=== PATIENT | female | born 1990 | race Caucasian/White ===

== ENCOUNTER 2018-02-02 09:10 | Emergency (ER) | payer BC ==
[2018-02-02] MEDS ORDERED: Pantoprazole 40 MG Vial IVPUSH ONE (09:38)
[2018-02-02] MEDS ORDERED: Sodium Chloride 0.9% 10 ML Syringe FLUSH PRN (09:38)
[2018-02-02] MEDS ORDERED: Ondansetron 4 MG/2 ML SDV IVPUSH ONE (09:38)
[2018-02-02] MEDS ORDERED: Sodium Chloride 0.9% 2.5 ML Syringe FLUSH PRN (09:38)
[2018-02-02] MEDS ORDERED: Sodium Chloride 0.9% 1,000 ML IV ONE (09:38)
--- NOTE | 2018-02-02 09:42 | EDM.PDOC ---
ED HPI GENERAL MEDICAL PROBLEM - General Chief Complaint: Abdominal Pain Stated Complaint: CHEST PAIN Time Seen by Provider: 02/02/18 09:32 - History of Present Illness INITIAL COMMENTS - FREE TEXT/NARRATIVE: HISTORY AND PHYSICAL: History of present illness: The patient is a 27 y/o female who presents with complaints of nausea vomiting and diarrhea that started yesterday and now has epigastric pain radiating up the middle of her chest. Symptoms started yesterday with the nausea and vomiting than the diarrhea and then the abdominal pain. She's had no chest pain per se just the discomfort with the vomiting. She's had no cough fevers chills or urinary complaints. Patient has a history of a cholecystectomy but has no history of food intolerance or heartburn issues in the past. She tried over-the- counter Rolaids and it did not help. The patient states that her stools are watery and she's had at least 10 since this started yesterday but they are not black or bloody. Boyfriend at bedside said he had similar symptoms but not this bad on Monday. Patient says she has not had any exotic travel or new food intake that she can identify as the problem. She has been able to take sips of water but nothing more than that. She's not passing out or blacking out. Patient has a Mirena and she has not had any dysuria frequency or flank pain. She says all of her pain is in the epigastrium at its origin and then moves upwards. The patient states that she does not drink excessive amounts of caffeine or alcohol. Review of systems: As per history of present illness and below otherwise all systems reviewed and negative. Past medical history: As per history of present illness and as reviewed below otherwise noncontributory. Surgical history: As per history of present illness and as reviewed below otherwise noncontributory. Social history: No reported history of drug or alcohol abuse. Family history: As per history of present illness and as reviewed below otherwise noncontributory. Physical exam: General: Well-developed well-nourished minimally overweight female who is nontoxic and vital signs are noted by me HEENT: Atraumatic, normocephalic,negative for conjunctival pallor or scleral icterus, mucous membranes tacky, throat clear, neck supple, nontender, trachea midline. Lungs: Clear to auscultation, breath sounds equal bilaterally, chest nontender. Heart: S1S2, regular rate and rhythm no overt murmurs Abdomen: Soft, nondistended, minimal tenderness on deep palpation in the epigastrium but no right upper or left upper quadrant tenderness.. Negative for masses or hepatosplenomegaly. NABS Pelvis: Stable nontender. Genitourinary: Deferred. Rectal: Deferred. Extremities: Atraumatic, negative for cords or calf pain. Neurovascular unremarkable. Neuro: Awake, alert, oriented. Cranial nerves II through XII unremarkable. Cerebellum unremarkable. Motor and sensory unremarkable throughout. Exam nonfocal. Diagnostics: CBC CMP UA UCG H pylori amylase lipase abdominal films with chest x-ray Therapeutics: IV fluids Zofran and Protonix Patient is feeling improved and is aware of all testing results. I will prescribe her Zofran a PPI and Bentyl for home and advised close follow-up with clinic provider.I Will give her those resources. Advised her that she should be eating bland food and clear liquids for the next 24 hours Impression: Vomiting diarrhea and epigastric pain Definitive disposition and diagnosis as appropriate pending reevaluation and review of above. Upper Abdomen Pain Score (Numeric/FACES): 8 - Related Data Allergies Allergy/AdvReac Type Severity Reaction Status Date / Time No Known Allergies Allergy Verified 02/02/18 09:31 Home Meds: Home Meds . [No Known Home Meds] 02/02/18 [History] Past Medical History HEENT History: Reports: Impaired Vision - Infectious Disease History Infectious Disease History: Reports: Chicken Pox - Past Surgical History GI Surgical History: Reports: Cholecystectomy Social & Family History - Family History Family Medical History: Noncontributory - Tobacco Use Smoking Status *Q: Never Smoker - Caffeine Use Caffeine Use: Reports: Coffee - Recreational Drug Use Recreational Drug Use: No ED ROS GENERAL - Review of Systems Review Of Systems: ROS reveals no pertinent complaints other than HPI. ED EXAM, GENERAL - Physical Exam Exam: See Below (See dictation) Course - Vital Signs Last Recorded V/S: Last Vital Signs Temp 36.6 C 02/02/18 09:26 Pulse 106 H 02/02/18 09:26 Resp 18 02/02/18 09:26 BP 129/87 02/02/18 09:26 Pulse Ox 97 02/02/18 09:26 - Orders/Labs/Meds Orders: Active Orders 24 hr Category Date Time Status HCG QUALITATIVE,URINE [URCHEM] Stat Lab 02/02/18 10:25 Ordered UA W/MICROSCOPIC [URIN] Stat Lab 02/02/18 10:25 Ordered Sodium Chloride 0.9% [Saline Flush] Med 02/02/18 09:38 Active 10 ml FLUSH ASDIRECTED PRN Sodium Chloride 0.9% [Saline Flush] Med 02/02/18 09:38 Active 2.5 ml FLUSH ASDIRECTED PRN Saline Lock Insert [OM.PC] Stat Oth 02/02/18 09:37 Ordered Medication Orders Sodium Chloride (Saline Flush) 10 ml FLUSH ASDIRECTED PRN PRN Reason: Keep Vein Open Last Admin: 02/02/18 10:16 Dose: 10 ml Sodium Chloride (Saline Flush) 2.5 ml FLUSH ASDIRECTED PRN PRN Reason: Keep Vein Open Last Admin: 02/02/18 10:16 Dose: 2.5 ml Labs: Laboratory Tests 02/02/18 02/02/18 02/02/18 Range/Units 10:10 10:10 10:10 WBC 11.23 H (4.0-11.0) K/uL RBC 4.92 (4.30-5.90) M/uL Hgb 14.5 (12.0-16.0) g/dL Hct 42.1 (36.0-46.0) % MCV 85.6 (80.0-98.0) fL MCH 29.5 (27.0-32.0) pg MCHC 34.4 (31.0-37.0) g/dL RDW Std Deviation 40.5 (28.0-62.0) fl RDW Coeff of [place] 13 (11.0-15.0) % Plt Count 233 (150-400) K/uL MPV 9.60 (7.40-12.00) fL Neut % (Auto) 80.0 (48.0-80.0) % Lymph % (Auto) 9.4 L (16.0-40.0) % [place] % (Auto) 10.5 (0.0-15.0) % Eos % (Auto) 0.0 (0.0-7.0) % Baso % (Auto) 0.1 (0.0-1.5) % Neut # (Auto) 9.0 H (1.4-5.7) K/uL Lymph # (Auto) 1.1 (0.6-2.4) K/uL [place] # (Auto) 1.2 H (0.0-0.8) K/uL Eos # (Auto) 0.0 (0.0-0.7) K/uL Baso # (Auto) 0.0 (0.0-0.1) K/uL Nucleated RBC % 0.0 /100WBC Nucleated RBCs # 0 K/uL Sodium 135 L (136-145) mmol/L Potassium 3.4 L (3.5-5.1) mmol/L Chloride 100 (98-107) mmol/L Carbon Dioxide 27.2 (21.0-32.0) mmol/L BUN 12 (7.0-18.0) mg/dL Creatinine 0.9 (0.6-1.0) mg/dL Est Cr Clr Drug Dosing 85.24 mL/min Estimated GFR (MDRD) > 60.0 ml/min Glucose 118 H (74-106) mg/dL Calcium 9.1 (8.5-10.1) mg/dL Total Bilirubin 0.7 (0.2-1.0) mg/dL AST 16 (15-37) IU/L ALT 29 (14-63) IU/L Alkaline Phosphatase 48 (46-116) U/L Total Protein 7.3 (6.4-8.2) g/dL Albumin 3.9 (3.4-5.0) g/dL Globulin 3.4 (2.0-3.5) g/dL Albumin/Globulin Ratio 1.1 L (1.3-2.8) Amylase 32 (25-115) U/L Lipase 68 L (73-393) U/L Urine Color Urine Appearance Urine pH (5.0-8.0) Ur Specific [place] (1.001-1.035) Urine Protein (NEGATIVE) mg/dL Urine Glucose (UA) (NEGATIVE) mg/dL Urine Ketones (NEGATIVE) mg/dL Urine Occult Blood (NEGATIVE) Urine Nitrite (NEGATIVE) Urine Bilirubin (NEGATIVE) Urine Urobilinogen (<2.0) EU/dL Ur Leukocyte Esterase (NEGATIVE) Urine RBC (0-2/HPF) Urine WBC (0-5/HPF) Ur Epithelial Cells (NONE-FEW) Urine Bacteria (NEGATIVE) Urine HCG, Qual (NEGATIVE) H. pylori IgG Antibody NEGATIVE (NEG) 02/02/18 02/02/18 Range/Units 10:25 10:25 WBC (4.0-11.0) K/uL RBC (4.30-5.90) M/uL Hgb (12.0-16.0) g/dL Hct (36.0-46.0) % MCV (80.0-98.0) fL MCH (27.0-32.0) pg MCHC (31.0-37.0) g/dL RDW Std Deviation (28.0-62.0) fl RDW Coeff of [place] (11.0-15.0) % Plt Count (150-400) K/uL MPV (7.40-12.00) fL Neut % (Auto) (48.0-80.0) % Lymph % (Auto) (16.0-40.0) % [place] % (Auto) (0.0-15.0) % Eos % (Auto) (0.0-7.0) % Baso % (Auto) (0.0-1.5) % Neut # (Auto) (1.4-5.7) K/uL Lymph # (Auto) (0.6-2.4) K/uL [place] # (Auto) (0.0-0.8) K/uL Eos # (Auto) (0.0-0.7) K/uL Baso # (Auto) (0.0-0.1) K/uL Nucleated RBC % /100WBC Nucleated RBCs # K/uL Sodium (136-145) mmol/L Potassium (3.5-5.1) mmol/L Chloride (98-107) mmol/L Carbon Dioxide (21.0-32.0) mmol/L BUN (7.0-18.0) mg/dL Creatinine (0.6-1.0) mg/dL Est Cr Clr Drug Dosing mL/min Estimated GFR (MDRD) ml/min Glucose (74-106) mg/dL Calcium (8.5-10.1) mg/dL Total Bilirubin (0.2-1.0) mg/dL AST (15-37) IU/L ALT (14-63) IU/L Alkaline Phosphatase (46-116) U/L Total Protein (6.4-8.2) g/dL Albumin (3.4-5.0) g/dL Globulin (2.0-3.5) g/dL Albumin/Globulin Ratio (1.3-2.8) Amylase (25-115) U/L Lipase (73-393) U/L Urine Color YELLOW Urine Appearance CLEAR Urine pH 6.0 (5.0-8.0) Ur Specific [place] <= 1.005 (1.001-1.035) Urine Protein NEGATIVE (NEGATIVE) mg/dL Urine Glucose (UA) NEGATIVE (NEGATIVE) mg/dL Urine Ketones NEGATIVE (NEGATIVE) mg/dL Urine Occult Blood NEGATIVE (NEGATIVE) Urine Nitrite NEGATIVE (NEGATIVE) Urine Bilirubin NEGATIVE (NEGATIVE) Urine Urobilinogen 0.2 (<2.0) EU/dL Ur Leukocyte Esterase NEGATIVE (NEGATIVE) Urine RBC NONE SEEN (0-2/HPF) Urine WBC 0-1 (0-5/HPF) Ur Epithelial Cells FEW (NONE-FEW) Urine Bacteria FEW (NEGATIVE) Urine HCG, Qual NEGATIVE (NEGATIVE) H. pylori IgG Antibody (NEG) Meds: Medications Generic Name Dose Route Start Last Admin Trade Name Freellie PRN Reason Stop Dose Admin Sodium Chloride 10 ml 02/02/18 09:38 02/02/18 10:16 Saline Flush FLUSH 10 ml ASDIRECTED PRN Administration Keep Vein Open Sodium Chloride 2.5 ml 02/02/18 09:38 02/02/18 10:16 Saline Flush FLUSH 2.5 ml ASDIRECTED PRN Administration Keep Vein Open Discontinued Medications Generic Name Dose Route Start Last Admin Trade Name Freq PRN Reason Stop Dose Admin Sodium Chloride 1,000 mls @ 999 mls/hr 02/02/18 09:38 02/02/18 10:16 Normal Saline IV 02/02/18 10:38 999 mls/hr STAT ONE Administration Ondansetron HCl 4 mg 02/02/18 09:38 02/02/18 10:16 Zofran IVPUSH 02/02/18 09:39 4 mg ONETIME ONE Administration Pantoprazole Sodium 80 mg 02/02/18 09:38 02/02/18 10:16 Protonix Iv IVPUSH 02/02/18 09:39 80 mg .BOLUS ONE Administration Departure - Departure Time of Disposition: 11:15 Disposition: Home, Self-Care 01 Condition: Good Clinical Impression: Epigastric abdominal pain Vomiting Qualifiers: Vomiting type: unspecified Vomiting Intractability: non-intractable Nausea presence: with nausea Qualified Code(s): R11.2 - Nausea with vomiting, unspecified Diarrhea Qualifiers: Diarrhea type: unspecified type Qualified Code(s): R19.7 - Diarrhea, unspecified - Discharge Information Referrals: PCP,None [Primary Care Provider] - Forms: ED Department Discharge Additional Instructions: The following information is given to patients seen in the emergency department who are being discharged to home. This information is to outline your options for follow-up care. We provide all patients seen in our emergency department with a follow-up referral. The need for follow-up, as well as the timing and circumstances, are variable depending upon the specifics of your emergency department visit. If you don't have a primary care physician on staff, we will provide you with a referral. We always advise you to contact your personal physician following an emergency department visit to inform them of the circumstance of the visit and for follow-up with them and/or the need for any referrals to a consulting specialist. The emergency department will also refer you to a specialist when appropriate. This referral assures that you have the opportunity for followup care with a specialist. All of these measure are taken in an effort to provide you with optimal care, which includes your followup. Under all circumstances we always encourage you to contact your private physician who remains a resource for coordinating your care. When calling for followup care, please make the office aware that this follow-up is from your recent emergency room visit. If for any reason you are refused follow-up, please contact the [facility] emergency department at and ask to speak to the emergency department charge nurse. [facility] Primary care- Internal Medicine and Family [address] [address] Push sips of clear liquids such as water and Gatorade and take small bites of food. Use Zofran and Bentyl as needed and prescribed. Please take the Protonix as prescribed. Call and schedule a follow-up appointment in the clinic and return to ER as needed and as discussed. - My Orders Last 24 Hours: My Active Orders 02/02/18 09:37 Saline Lock Insert [OM.PC] Stat 02/02/18 09:38 Sodium Chloride 0.9% [Saline Flush] 10 ml FLUSH ASDIRECTED PRN Sodium Chloride 0.9% [Saline Flush] 2.5 ml FLUSH ASDIRECTED PRN 02/02/18 10:25 HCG QUALITATIVE,URINE [URCHEM] Stat UA W/MICROSCOPIC [URIN] Stat - Assessment/Plan Last 24 Hours: My Active Orders 02/02/18 09:37 Saline Lock Insert [OM.PC] Stat 02/02/18 09:38 Sodium Chloride 0.9% [Saline Flush] 10 ml FLUSH ASDIRECTED PRN Sodium Chloride 0.9% [Saline Flush] 2.5 ml FLUSH ASDIRECTED PRN 02/02/18 10:25 HCG QUALITATIVE,URINE [URCHEM] Stat UA W/MICROSCOPIC [URIN] Stat
[2018-02-02 09:47] VITALS: BP 129/87
[2018-02-02 10:58] LABS: CHLORIDE,CL 100 mmol/L (98-107); SODIUM,NA 135 mmol/L (136-145)
--- NOTE | 2018-02-02 11:11 | CR ---
EXAMINATION: Chest and abdomen HISTORY: Pain COMPARISON: None TECHNIQUE: PA chest and AP and upright views of the abdomen FINDINGS: The lungs are clear without focal consolidation. No pleural effusion or pneumothorax. Cardiomediastin al silhouette is normal. There is no free air under the diaphragm. There is a small amount of stool and gas within the colon. There is a single loop of mildly prominent small bowel within the right aspect of the abdomen with an air-fluid level, however this only measures 2.7 cm in diameter. There is an IUD noted. Cholecystecto my clips are present. No abnormal calcifications project over the kidneys. Ascites osseous structures appear normal. IMPRESSION: 1. Borderline small bowel dilatation noted within the right lower quadrant, definitive bowel obstruct ion is not noted at this time.
== END 2018-02-02 12:05 | disposition home or self-care (01) ==
LOC: MW.ED 09:10
DX: R11.2 Nausea with vomiting, unspecified (principal); R19.7 Diarrhea, unspecified; R10.13 Epigastric pain
CPT/HCPCS: 36415; 74022; 80053; 81001; 81025; 82150; 83690; 85025; 86677; 96361; 96374; 96375; 99284; C9113; J2405; J7040

== ENCOUNTER 2019-02-13 11:45 | Observation (INO) | payer OTHER ==
[2019-02-13] MEDS ORDERED: Water For Irrigation,Sterile 1,000 ML Container IRR PRN (12:26)
[2019-02-13] MEDS ORDERED: Misoprostol 200 MCG Tab PO PRN (12:26)
[2019-02-13] MEDS ORDERED: Ondansetron 4 MG/2 ML SDV IVPUSH PRN (12:26)
[2019-02-13] MEDS ORDERED: Sodium Chloride 0.9% 2.5 ML Syringe FLUSH PRN (12:26)
[2019-02-13] MEDS ORDERED: Carboprost Tromethamine 250 MCG/1 ML Amp IM PRN (12:26)
[2019-02-13] MEDS ORDERED: Sodium Chloride 0.9% 10 ML SDV IV PRN (12:26)
[2019-02-13] MEDS ORDERED: Tranexamic Acid 1,000 MG in Sodium Chloride 0.9% 100 ML IV PRN (12:26)
[2019-02-13] MEDS ORDERED: Lidocaine 1% 50 ML MDV INJECT PRN (12:26)
[2019-02-13] MEDS ORDERED: Methylergonovine 0.2 MG/1 ML Amp IM PRN (12:26)
[2019-02-13] MEDS ORDERED: Sodium Chloride 0.9% 10 ML Syringe FLUSH PRN (12:26)
[2019-02-13] MEDS ORDERED: Lactated Ringers 1,000 ML IV SCH (12:30)
[2019-02-13] MEDS ORDERED: Oxytocin/0.9 % Sodium Chloride 30 UNIT/500 ML BAG IV SCH (12:30)
[2019-02-13] MEDS ORDERED: Misoprostol 50 MCG (1/2 of 100 MCG) Tab VAG ONE (12:34)
[2019-02-13] MEDS ORDERED: Misoprostol 200 MCG Tab VAG ONE (14:00)
[2019-02-13] MEDS: Butorphanol 1 MG/ML SDV IVPUSH PRN ×2 (17:36→21:14)
[2019-02-13] MEDS: Misoprostol 200 MCG Tab VAG SCH ×2 (17:40→21:14)
[2019-02-14] MEDS ORDERED: Misoprostol 100 MCG Tab VAG ONE (00:15)
[2019-02-14] MEDS: Butorphanol 1 MG/ML SDV IVPUSH PRN ×3 (00:26→05:02)
[2019-02-14] MEDS: Misoprostol 200 MCG Tab VAG SCH (00:27)
[2019-02-14] MEDS ORDERED: Ibuprofen 800 MG Tab PO PRN (06:39)
[2019-02-14] MEDS ORDERED: Benzocaine/Menthol 20%-0.5% Spray 78 GM Cannister TOP PRN (06:39)
[2019-02-14] MEDS ORDERED: Ibuprofen 400 MG Tab PO PRN (06:39)
[2019-02-14] MEDS ORDERED: Lanolin 100% Cream 7 GM Tube TOP PRN (06:39)
[2019-02-14] MEDS ORDERED: Witch Hazel Medicated Pads 40/Jar TOP PRN (06:39)
[2019-02-14] MEDS ORDERED: Bisacodyl 10 MG Supp RECTAL PRN (06:39)
[2019-02-14] MEDS ORDERED: Docusate Sodium 100 MG Cap PO PRN (06:39)
[2019-02-14] MEDS ORDERED: Acetaminophen 500 MG Tab PO PRN ×2 (06:39)
[2019-02-14] MEDS ORDERED: oxyCODONE 5 MG Tab PO PRN (06:39)
--- NOTE | 2019-02-14 06:47 | PCM.DEL ---
L & D Note - General Info Date of Service: 02/14/19 Mother's Due Date: 05/16/19 - Delivery Note Cervical Ripening Method: Misoprostil Delivery Outcome: Miscarriage Anesthesia Type: None Episiotomy Type: None Laceration: None Placenta: Intact Estimated Blood Loss: 150 Delivery Comments (Free Text/Narrative):: Stillborn fetus delivered at 515am Gross examination no gross anomalies except edematous scalp Male fetus - General Info Date of Service: 02/14/19 - Patient Data Weight - Most Recent: 101.605 kg Lab Results Last 24 Hours: Laboratory Results - last 24 hr 02/13/19 02/13/19 Range/Units 13:29 13:29 WBC 14.71 H (4.0-11.0) K/uL RBC 4.67 (4.30-5.90) M/uL Hgb 13.7 (12.0-16.0) g/dL Hct 40.1 (36.0-46.0) % MCV 85.9 (80.0-98.0) fL MCH 29.3 (27.0-32.0) pg MCHC 34.2 (31.0-37.0) g/dL RDW Std Deviation 41.2 (28.0-62.0) fl RDW Coeff of [place]ber[place] 13 (11.0-15.0) % Plt Count 267 (150-400) K/uL MPV 9.30 (7.40-12.00) fL Nucleated RBC % 0.0 /100WBC Nucleated RBCs # 0 K/uL Blood Type A POSITIVE Antibody Screen NEGATIVE Med Orders - Current: Current Medications Acetaminophen (Tylenol Extra Strength) 500 mg PO Q4H PRN PRN Reason: Pain Acetaminophen (Tylenol Extra Strength) 1,000 mg PO Q4H PRN PRN Reason: Pain Benzocaine/Menthol (Dermoplast Pain Relief 20%-0.5% [place]) 78 gm TOP ASDIRECTED PRN PRN Reason: Perineal Comfort Measure Bisacodyl (Dulcolax) 10 mg RECTAL ONETIME PRN PRN Reason: Constipation Butorphanol Tartrate (Stadol) 1 mg IVPUSH Q1H PRN PRN Reason: Pain Last Admin: 02/14/19 05:02 Dose: 1 mg Carboprost Tromethamine (Hemabate Ds) 250 mcg IM ASDIRECTED PRN PRN Reason: Post Hemorrhage Docusate Sodium (Colace) 100 mg PO BID PRN PRN Reason: Constipation Emollient Ointment (Lansinoh Hpa) 0 gm TOP ASDIRECTED PRN PRN Reason: Sore Nipples Lactated Ringer's (Ringers, Lactated) 1,000 mls @ 150 mls/hr IV ASDIRECTED [facility] Oxytocin/Sodium Chloride (Oxytocin 30 Unit/500 Ml-Ns) 30 unit in 500 mls @ 999 mls/hr IV TITRATE [facility] Last Admin: 02/14/19 05:20 Dose: 999 mls/hr Tranexamic Acid 1,000 mg/ (Sodium Chloride) 110 mls @ 660 mls/hr IV ONETIME PRN PRN Reason: Bleeding Ibuprofen (Motrin) 400 mg PO Q4H PRN PRN Reason: Pain Ibuprofen (Motrin) 800 mg PO Q6H PRN PRN Reason: Pain Lidocaine HCl (Xylocaine 1%) 50 ml INJECT ONETIME PRN PRN Reason: Laceration repair Methylergonovine Maleate (Methergine) 0.2 mg IM ASDIRECTED PRN PRN Reason: Post Hemorrhage Misoprostol (Cytotec) 200 mcg PO ONETIME PRN PRN Reason: Post Hemorrhage Misoprostol (Cytotec) 400 mcg VAG Q3H [facility] Last Admin: 02/14/19 00:27 Dose: 600 mcg Ondansetron HCl (Zofran) 4 mg IVPUSH Q6H PRN PRN Reason: Nausea/Vomiting Oxycodone HCl (Oxycodone) 5 mg PO Q2H PRN PRN Reason: Pain Sodium Chloride (Saline Flush) 10 ml FLUSH ASDIRECTED PRN PRN Reason: Keep Vein Open Sodium Chloride (Saline Flush) 2.5 ml FLUSH ASDIRECTED PRN PRN Reason: Keep Vein Open Sodium Chloride (Normal Saline) 10 ml IV ASDIRECTED PRN PRN Reason: IV Use Sterile Water (Sterile Water For Irrigation) 1,000 ml IRR ASDIRECTED PRN PRN Reason: delivery Witch Mary (Tucks) 1 pad TOP ASDIRECTED PRN PRN Reason: comfort care Discontinued Medications Misoprostol (Cytotec) 800 mcg VAG ONETIME ONE Stop: 02/13/19 12:35 Last Admin: 02/13/19 14:04 Dose: Not Given Misoprostol (Cytotec) 800 mcg VAG ONETIME ONE Stop: 02/13/19 14:01 Last Admin: 02/13/19 14:20 Dose: 800 mcg - Problem List & Annotations (1) Missed SNOMED Code(s): 61889677 Code(s): O02.1 - MISSED Status: Acute Current Visit: Yes - Problem List Review Problem List Initiated/Reviewed/Updated: Yes - My Orders Last 24 Hours: My Active Orders 02/13/19 11:50 Patient Status [ADT] Routine May Shower [RC] ASDIRECTED Up ad Carlene [RC] ASDIRECTED Vital Signs [RC] PER UNIT ROUTINE 02/13/19 12:26 Butorphanol [Stadol] 1 mg IVPUSH Q1H PRN Carboprost Tromethamine [Hemabate DS] 250 mcg IM ASDIRECTED PRN Lidocaine 1% [Xylocaine 1%] 50 ml INJECT ONETIME PRN Methylergonovine [Methergine] 0.2 mg IM ASDIRECTED PRN Ondansetron [Zofran] 4 mg IVPUSH Q6H PRN Sodium Chloride 0.9% [Normal Saline] 10 ml IV ASDIRECTED PRN Sodium Chloride 0.9% [Saline Flush] 10 ml FLUSH ASDIRECTED PRN Sodium Chloride 0.9% [Saline Flush] 2.5 ml FLUSH ASDIRECTED PRN Tranexamic Acid [Cyklokapron] 1,000 mg Sodium Chloride 0.9% [Normal Saline] 100 ml IV ONETIME Water For Irrigation,Sterile [Sterile Water for Irrigation] 1,000 ml IRR ASDIRECTED PRN miSOPROStol [Cytotec] 200 mcg PO ONETIME PRN 02/13/19 12:27 Notify Provider [RC] PRN Vaginal Exam [RC] PRN Scalp Electrode [WOMSER] Per Unit Routine Peripheral IV Insertion Adult [OM.PC] Routine 02/13/19 12:30 Lactated Ringers [Ringers, Lactated] 1,000 ml IV ASDIRECTED Oxytocin/0.9 % Sodium Chloride [Oxytocin 30 Unit/500 ML-NS] 30 unit in 500 ml IV TITRATE 02/13/19 13:29 [id number] 2(IGG/M)CARD(I.. [REF] Routine 02/13/19 16:00 miSOPROStol [Cytotec] 400 mcg VAG Q3H 02/13/19 Dinner Regular Diet [DIET] 02/14/19 06:39 May Shower [RC] ASDIRECTED Up ad Carlene [RC] ASDIRECTED Vital Signs [RC] PER UNIT ROUTINE Acetaminophen [Tylenol Extra Strength] 1,000 mg PO Q4H PRN Acetaminophen [Tylenol Extra Strength] 500 mg PO Q4H PRN Benzocaine/Menthol [Dermoplast Pain Relief 20%-0.5% [place]] 78 gm TOP ASDIRECTED PRN Bisacodyl [Dulcolax] 10 mg RECTAL ONETIME PRN Docusate Sodium [Colace] 100 mg PO BID PRN Ibuprofen [Motrin] 400 mg PO Q4H PRN Ibuprofen [Motrin] 800 mg PO Q6H PRN Lanolin [Lansinoh HPA] See Dose Instructions TOP ASDIRECTED PRN [place] [Tucks] 1 pad TOP ASDIRECTED PRN oxyCODONE 5 mg PO Q2H PRN Assess Lochia [WOMSER] Per Unit Routine Assess Uterine Involution [WOMSER] Per Unit Routine Peripheral IV Discontinue [OM.PC] Routine 02/15/19 05:11 HEMOGLOBIN/HEMATOCRIT,HH [HEME] Timed
[2019-02-14] MEDS ORDERED: Measles, Mumps & Rubella Vaccine 0.5 ML SDV SUBCUT ONE (06:53)
[2019-02-14 10:36] VITALS: BP 133/67; PULSE 81
--- NOTE | 2019-02-14 13:47 | OR ---
SURGEON: MARIPOSA GOODWIN DATE OF PROCEDURE: 02/14/2019 PREOPERATIVE DIAGNOSIS: A 28-year-old G1, P0, at 19 weeks 5 days with missed . POSTOPERATIVE DIAGNOSIS: A 28-year-old G1, P0, at 19 weeks 5 days with missed . PROCEDURE: Vaginal delivery. ESTIMATED BLOOD LOSS: 200 mL. IV FLUID: Normal saline. BRIEF HISTORY: A 28-year-old G1, P0, came in for induction of labor secondary to missed AB at 19 weeks 5 days. She was offered D and E, versus a medical induction. The patient wanted to go ahead with an induction. PROCEDURE Induction of labor was started with Cytotec. She got 4 doses of Cytotec and then delivered the stillborn fetus. Fetus was grossly examined, noted to be a male infant, weight was 162 g. The patient was then inspected. The uterus was noted to be contracted. IV Pitocin was running. All instrument and pad counts were correct x2, and the patient would like to go home today. All instructions were given on discharge. RICHIE BALL /[id number] MTDD
== END 2019-02-14 14:00 | disposition home or self-care (01) ==
LOC: MW.OB 11:45
PROVIDERS: ADMIT Obstetrics & Gynecology; ATTEND Obstetrics & Gynecology
DX: O02.1 Missed abortion (principal); Z37.1 Single stillbirth
CPT/HCPCS: 36415; 59409; 85027; 85610; 85611; 85613; 85670; 85732; 86146; 86147; 86850; 86900; 86901; 88233; A9270; G0378; J0595; J2590

== ENCOUNTER 2021-07-04 11:26 | Inpatient (IN) | payer BC ==
[2021-07-04 12:38] LABS: BLOOD UREA NITROGEN,BUN 6 mg/dL (7.0-18.0); CARBON DIOXIDE,CO2 23.2 mmol/L (21.0-32.0); CHLORIDE,CL 103 mmol/L (98-107); GLUCOSE RANDOM 112 mg/dL (74-106); POTASSIUM,K 3.5 mmol/L (3.5-5.1); SODIUM,NA 139 mmol/L (136-145)
[2021-07-04] MEDS ORDERED: Sodium Chloride 0.9% 10 ML Syringe FLUSH PRN (13:20)
[2021-07-04] MEDS ORDERED: Sodium Chloride 0.9% 2.5 ML Syringe FLUSH PRN (13:20)
[2021-07-04] MEDS ORDERED: cefTRIAXone 1 GM in Sodium Chloride 0.9% 50 ML IV ONE (13:20)
[2021-07-04] MEDS ORDERED: Sodium Chloride 0.9% 1,000 ML IV SCH (14:15)
[2021-07-04] MEDS: Lactated Ringers 1,000 ML IV SCH ×2 (16:05→22:33)
[2021-07-05] MEDS: cefTRIAXone 1 GM in Sodium Chloride 0.9% 50 ML IV SCH ×2 (01:40→13:42)
[2021-07-05] MEDS: Lactated Ringers 1,000 ML IV SCH ×2 (05:13→11:59)
[2021-07-05 12:13] VITALS: BP 123/78; PULSE 98
== END 2021-07-05 15:05 | disposition home or self-care (01) | DRG 566 ==
LOC: MW.ED 11:26 → MW.OB 14:14
PROVIDERS: ADMIT Obstetrics & Gynecology; ATTEND Obstetrics & Gynecology
DX: O98.512 Other viral diseases complicating pregnancy, second trimester (principal); U07.1 COVID-19; O23.02 Infections of kidney in pregnancy, second trimester; Z3A.19 19 weeks gestation of pregnancy
CPT/HCPCS: 36415; 76815; 76815-26; 76817; 76817-26; 80053; 81001; 83605; 85025; 86900; 86901; 87040; 87086; 96365; 99285-25; J0696; J7030; J7120; U0002

== ENCOUNTER 2021-11-08 20:13 | Inpatient (IN) | payer BC ==
[2021-11-08] MEDS ORDERED: Misoprostol 200 MCG Tab PO PRN (20:52)
[2021-11-08] MEDS ORDERED: Sodium Chloride 0.9% 20 ML SDV IV PRN (20:52)
[2021-11-08] MEDS ORDERED: Water For Irrigation,Sterile 1,000 ML Container IRR PRN (20:52)
[2021-11-08] MEDS ORDERED: Methylergonovine 0.2 MG/1 ML Amp IM PRN (20:52)
[2021-11-08] MEDS ORDERED: Sodium Chloride 0.9% 10 ML Syringe FLUSH PRN (20:52)
[2021-11-08] MEDS ORDERED: Tranexamic Acid 1,000 MG in Sodium Chloride 0.9% 100 ML IV PRN (20:52)
[2021-11-08] MEDS ORDERED: Butorphanol 1 MG/ML SDV IVPUSH PRN (20:52)
[2021-11-08] MEDS ORDERED: Ondansetron 4 MG/2 ML SDV IVPUSH PRN (20:52)
[2021-11-08] MEDS ORDERED: Lidocaine 1% 50 ML MDV INJECT PRN (20:52)
[2021-11-08] MEDS ORDERED: Misoprostol 25 MCG (1/4 of 100 MCG) Tab VAG PRN ×2 (20:52)
[2021-11-08] MEDS ORDERED: Carboprost Tromethamine 250 MCG/1 ML Amp IM PRN (20:52)
[2021-11-08] MEDS ORDERED: Terbutaline 1 MG/ML SDV SUBCUT PRN (20:52)
[2021-11-08] MEDS ORDERED: Sodium Chloride 0.9% 2.5 ML Syringe FLUSH PRN (20:52)
[2021-11-08] MEDS ORDERED: Oxytocin/0.9 % Sodium Chloride 30 UNIT/500 ML BAG IV SCH ×2 (21:00)
[2021-11-08 22:05] LABS: BLOOD UREA NITROGEN,BUN 13 mg/dL (7.0-18.0); CARBON DIOXIDE,CO2 19.9 mmol/L (21.0-32.0); CHLORIDE,CL 106 mmol/L (98-107); GLUCOSE RANDOM 108 mg/dL (74-106); POTASSIUM,K 3.3 mmol/L (3.5-5.1); SODIUM,NA 137 mmol/L (136-145)
[2021-11-08] MEDS: Lactated Ringers 1,000 ML IV SCH (22:34)
[2021-11-08] MEDS ORDERED: Ropivacaine in NACL,ISO-OSM/PF 800 MG in Premix Bag 1 BAG EPIDUR SCH ×2 (23:45)
[2021-11-08] MEDS ORDERED: ePHEDrine 50 MG/ML SDV IVPUSH PRN ×2 (23:55)
[2021-11-09] MEDS ORDERED: Oxytocin/0.9 % Sodium Chloride 30 UNIT/500 ML BAG IV SCH (00:01)
[2021-11-09] MEDS: Lactated Ringers 1,000 ML IV SCH ×2 (07:52→14:53)
[2021-11-09] MEDS: Labetalol 100 MG Tab PO SCH ×2 (09:07→20:55)
[2021-11-09] MEDS: Cephalexin 500 MG Cap PO SCH ×2 (09:08→20:55)
[2021-11-09] MEDS ORDERED: fentaNYL 100 MCG/2 ML SDV ONE (13:05)
[2021-11-09] MEDS ORDERED: Lidocaine 2% with EPINEPHrine 1:200,000 20 ML SDV ONE (13:05)
[2021-11-09] MEDS ORDERED: Benzocaine/Menthol 20%-0.5% Spray 78 GM Cannister TOP PRN (18:03)
[2021-11-09] MEDS ORDERED: Ibuprofen 400 MG Tab PO PRN (18:03)
[2021-11-09] MEDS ORDERED: Acetaminophen 500 MG Tab PO PRN ×2 (18:03)
[2021-11-09] MEDS ORDERED: oxyCODONE 5 MG Tab PO PRN (18:03)
[2021-11-09] MEDS ORDERED: Lanolin 100% Cream 7 GM Tube TOP PRN (18:03)
[2021-11-09] MEDS ORDERED: Witch Hazel Medicated Pads 40/Jar TOP PRN (18:03)
[2021-11-09] MEDS ORDERED: Bisacodyl 10 MG Supp RECTAL PRN (18:03)
[2021-11-09] MEDS ORDERED: Measles, Mumps & Rubella Vaccine 0.5 ML SDV SUBCUT ONE (18:03)
[2021-11-09] MEDS ORDERED: Docusate Sodium 100 MG Cap PO PRN (18:03)
[2021-11-09 19:12] LABS: BLOOD UREA NITROGEN,BUN 12 mg/dL (7.0-18.0); CARBON DIOXIDE,CO2 18.9 mmol/L (21.0-32.0); CHLORIDE,CL 106 mmol/L (98-107); GLUCOSE RANDOM 78 mg/dL (74-106); POTASSIUM,K 3.3 mmol/L (3.5-5.1); SODIUM,NA 136 mmol/L (136-145)
[2021-11-09] MEDS: Ibuprofen 800 MG Tab PO PRN (20:02)
[2021-11-10] MEDS: Ibuprofen 800 MG Tab PO PRN ×2 (08:12→18:48)
[2021-11-10] MEDS: Labetalol 100 MG Tab PO SCH ×2 (09:20→20:57)
[2021-11-10] MEDS: Cephalexin 500 MG Cap PO SCH ×2 (09:20→20:57)
[2021-11-11] MEDS ORDERED: Measles, Mumps & Rubella Vaccine 0.5 ML SDV SUBCUT ONE (08:12)
[2021-11-11] MEDS: Cephalexin 500 MG Cap PO SCH (08:56)
[2021-11-11] MEDS: Labetalol 100 MG Tab PO SCH (08:56)
[2021-11-11 14:26] VITALS: BP 131/76; PULSE 85
== END 2021-11-11 12:25 | disposition home or self-care (01) | DRG 560 ==
LOC: MW.OBCHECK 20:13 → MW.OB 20:18 → MW.OBCHECK 20:53 → MW.OB 20:53 → OBSVTOIN 11-09 18:04 → MW.OB 11-09 21:54
PROVIDERS: ADMIT Obstetrics & Gynecology; ATTEND Obstetrics & Gynecology
PROC: 10D07Z6 Extraction of Products of Conception, Vacuum, Via Natural or Artificial Opening (ICD-10-PCS; principal; 2021-11-09)
PROC: 10907ZC Drainage of Amniotic Fluid, Therapeutic from Products of Conception, Via Natural or Artificial Opening (ICD-10-PCS; 2021-11-09)
PROC: 3E0P7VZ Introduction of Hormone into Female Reproductive, Via Natural or Artificial Opening (ICD-10-PCS; 2021-11-09)
PROC: 3E033VJ Introduction of Other Hormone into Peripheral Vein, Percutaneous Approach (ICD-10-PCS; 2021-11-09)
PROC: 0HQ9XZZ Repair Perineum Skin, External Approach (ICD-10-PCS; 2021-11-09)
PROC: 3E0R3BZ Introduction of Anesthetic Agent into Spinal Canal, Percutaneous Approach (ICD-10-PCS; 2021-11-09)
PROC: 00HU33Z Insertion of Infusion Device into Spinal Canal, Percutaneous Approach (ICD-10-PCS; 2021-11-09)
PROC: 3E0234Z Introduction of Serum, Toxoid and Vaccine into Muscle, Percutaneous Approach (ICD-10-PCS; 2021-11-11)
DX: O10.92 Unspecified pre-existing hypertension complicating childbirth (principal); Z37.0 Single live birth; O99.214 Obesity complicating childbirth; E66.01 Morbid (severe) obesity due to excess calories; Z20.822 Contact with and (suspected) exposure to COVID-19; O70.0 First degree perineal laceration during delivery; O69.81X0 Labor and delivery complicated by cord around neck, without compression, not applicable or unspecified; Z3A.37 37 weeks gestation of pregnancy; Z23 Encounter for immunization; Z90.49 Acquired absence of other specified parts of digestive tract; Z86.16 Personal history of COVID-19
CPT/HCPCS: 01967; 36415; 51702; 80053; 82570; 84112; 84156; 84550; 85027; 86592; 86850; 86900; 86901; 90471; 90707; A9270-GY; J2590; J2795; J3010; J7120; U0002

== ENCOUNTER 2023-02-12 22:34 | Emergency (ER) | payer BC ==
[2023-02-12] MEDS ORDERED: Ibuprofen 600 MG Tab PO ONE (22:54)
[2023-02-12] MEDS ORDERED: Lidocaine 1% 5 ML VIAL INJECT ONE ×2 (22:55)
[2023-02-12] MEDS ORDERED: Sulfamethoxazole/Trimethoprim 800-160 MG Tab PO ONE (22:56)
[2023-02-12 23:39] VITALS: BP 131/78; PULSE 104
== END 2023-02-12 23:32 | disposition home or self-care (01) ==
LOC: MW.ED 22:34
DX: L03.012 Cellulitis of left finger (principal); L02.512 Cutaneous abscess of left hand; I10 Essential (primary) hypertension; E66.9 Obesity, unspecified; Z91.09 Other allergy status, other than to drugs and biological substances; Z86.16 Personal history of COVID-19; Z68.41 Body mass index [BMI] 40.0-44.9, adult
CPT/HCPCS: 99283; A9270; 10060; J3490

== ENCOUNTER 2023-02-14 20:36 | Inpatient (IN) | payer BC ==
[2023-02-14] MEDS ORDERED: cefTRIAXone 1 GM in Sodium Chloride 0.9% 50 ML IV ONE (21:33)
[2023-02-14] MEDS ORDERED: VANCOmycin 2 GM/400 ML 2 GM in Premix Bag 1 BAG IV ONE (21:45)
[2023-02-14] MEDS ORDERED: Ondansetron 4 MG/2 ML SDV IVPUSH PRN (21:56)
[2023-02-14] MEDS ORDERED: Sodium Chloride 0.9% 2.5 ML Syringe FLUSH PRN (21:56)
[2023-02-14] MEDS ORDERED: Acetaminophen 325 MG Tab PO PRN (21:56)
[2023-02-14] MEDS ORDERED: Polyethylene Glycol 3350 Powder 17 GM Packet PO PRN (21:56)
[2023-02-14] MEDS ORDERED: Sodium Chloride 0.9% 10 ML Syringe FLUSH PRN (21:56)
[2023-02-14] MEDS ORDERED: Albuterol/Ipratropium 3.0-0.5 MG/3 ML Neb Soln NEB PRN (21:56)
[2023-02-14] MEDS ORDERED: Sodium Chloride 0.9% 20 ML SDV IV PRN (21:56)
[2023-02-14] MEDS ORDERED: oxyCODONE 5 MG Tab PO PRN (21:56)
[2023-02-14 22:01] LABS: BASOPHILS PERCENT AUTO 0.2 % (0.0-1.5); EOSINOPHILS ABSOLUTE AUTO 0.3 K/uL (0.0-0.7); EOSINOPHILS PERCENT AUTO 3.6 % (0.0-7.0); HEMATOCRIT 40.7 % (36.0-46.0); HEMOGLOBIN 13.7 g/dL (12.0-16.0); LYMPHOCYTES ABSOLUTE AUTO 3.7 K/uL (0.6-2.4); LYMPHOCYTES PERCENT AUTO 39.5 % (16.0-40.0); MEAN CORPUSCULAR HEMOGLOBIN 28.3 pg (27.0-32.0); MEAN CORPUSCULAR HGB CONC 33.7 g/dL (31.0-37.0); MEAN CORPUSCULAR VOLUME 84.1 fL (80.0-98.0); MONOCYTES ABSOLUTE AUTO 0.7 K/uL (0.0-0.8); NEUTROPHILS ABSOLUTE AUTO 4.5 K/uL (1.4-5.7); NEUTROPHILS PERCENT AUTO 48.7 % (48.0-80.0); NRBC ABSOLUTE 0 K/uL; PLATELET COUNT,PLT 260 K/uL (150-400); RED BLOOD CELL COUNT 4.84 M/uL (4.30-5.90); WHITE BLOOD CELL COUNT,WBC 9.26 K/uL (4.0-11.0)
[2023-02-14 22:27] LABS: ALBUMIN 3.6 g/dL (3.4-5.0); BILIRUBIN TOTAL 0.3 mg/dL (0.2-1.0); CALCIUM 8.7 mg/dL (8.5-10.1); CARBON DIOXIDE,CO2 23.5 mmol/L (21.0-32.0); CREATININE 0.8 mg/dL (0.6-1.0); EST CRCL DRUG DOSING (CG) 95.38 mL/min; PROTEIN TOTAL,TP 7.3 g/dL (6.4-8.2)
[2023-02-14] MEDS: cefTRIAXone 2 GM in Sodium Chloride 0.9% 50 ML IV SCH (23:13)
[2023-02-15 06:01] LABS: BASOPHILS PERCENT AUTO 0.5 % (0.0-1.5); EOSINOPHILS ABSOLUTE AUTO 0.3 K/uL (0.0-0.7); HEMATOCRIT 39.6 % (36.0-46.0); HEMOGLOBIN 13.2 g/dL (12.0-16.0); LYMPHOCYTES ABSOLUTE AUTO 2.8 K/uL (0.6-2.4); LYMPHOCYTES PERCENT AUTO 36.2 % (16.0-40.0); MEAN CORPUSCULAR HEMOGLOBIN 28.1 pg (27.0-32.0); MEAN CORPUSCULAR HGB CONC 33.3 g/dL (31.0-37.0); MEAN CORPUSCULAR VOLUME 84.3 fL (80.0-98.0); MONOCYTES ABSOLUTE AUTO 0.7 K/uL (0.0-0.8); MONOCYTES PERCENT AUTO 9.1 % (0.0-15.0); NEUTROPHILS ABSOLUTE AUTO 3.9 K/uL (1.4-5.7); NEUTROPHILS PERCENT AUTO 50.2 % (48.0-80.0); NRBC ABSOLUTE 0 K/uL; PLATELET COUNT,PLT 264 K/uL (150-400); WHITE BLOOD CELL COUNT,WBC 7.76 K/uL (4.0-11.0)
[2023-02-15 06:20] LABS: C-REACTIVE PROTEIN 2.8 mg/dL (0.00-0.90); CALCIUM 8.6 mg/dL (8.5-10.1); CARBON DIOXIDE,CO2 22.5 mmol/L (21.0-32.0); CREATININE 0.8 mg/dL (0.6-1.0); EST CRCL DRUG DOSING (CG) 95.38 mL/min
[2023-02-15] MEDS: cefTRIAXone 2 GM in Sodium Chloride 0.9% 50 ML IV SCH (21:40)
[2023-02-16 06:00] LABS: BASOPHILS PERCENT AUTO 0.5 % (0.0-1.5); EOSINOPHILS ABSOLUTE AUTO 0.3 K/uL (0.0-0.7); EOSINOPHILS PERCENT AUTO 4.5 % (0.0-7.0); HEMATOCRIT 41.2 % (36.0-46.0); HEMOGLOBIN 13.3 g/dL (12.0-16.0); LYMPHOCYTES ABSOLUTE AUTO 2.8 K/uL (0.6-2.4); LYMPHOCYTES PERCENT AUTO 37.6 % (16.0-40.0); MEAN CORPUSCULAR HEMOGLOBIN 27.4 pg (27.0-32.0); MEAN CORPUSCULAR HGB CONC 32.3 g/dL (31.0-37.0); MEAN CORPUSCULAR VOLUME 84.8 fL (80.0-98.0); MONOCYTES ABSOLUTE AUTO 0.6 K/uL (0.0-0.8); MONOCYTES PERCENT AUTO 8.1 % (0.0-15.0); NEUTROPHILS ABSOLUTE AUTO 3.7 K/uL (1.4-5.7); NEUTROPHILS PERCENT AUTO 49.3 % (48.0-80.0); NRBC ABSOLUTE 0 K/uL; PLATELET COUNT,PLT 282 K/uL (150-400); RED BLOOD CELL COUNT 4.86 M/uL (4.30-5.90); WHITE BLOOD CELL COUNT,WBC 7.53 K/uL (4.0-11.0)
[2023-02-16 06:30] LABS: A/G RATIO 0.9 (0.9-1.6); ALBUMIN 3.4 g/dL (3.4-5.0); BILIRUBIN TOTAL 0.3 mg/dL (0.2-1.0); CALCIUM 8.4 mg/dL (8.5-10.1); CARBON DIOXIDE,CO2 21.5 mmol/L (21.0-32.0); CREATININE 0.8 mg/dL (0.6-1.0); EST CRCL DRUG DOSING (CG) 95.38 mL/min; POTASSIUM,K 4.1 mmol/L (3.5-5.1)
[2023-02-16] MEDS ORDERED: Digoxin 500 MCG/2 ML Amp IVPUSH ONE (12:30)
[2023-02-16] MEDS: cefTRIAXone 2 GM in Sodium Chloride 0.9% 50 ML IV SCH (22:03)
[2023-02-17 06:38] LABS: BASOPHILS PERCENT AUTO 0.5 % (0.0-1.5); EOSINOPHILS ABSOLUTE AUTO 0.4 K/uL (0.0-0.7); EOSINOPHILS PERCENT AUTO 5.4 % (0.0-7.0); HEMATOCRIT 41.6 % (36.0-46.0); HEMOGLOBIN 13.8 g/dL (12.0-16.0); LYMPHOCYTES ABSOLUTE AUTO 3.2 K/uL (0.6-2.4); LYMPHOCYTES PERCENT AUTO 39.3 % (16.0-40.0); MEAN CORPUSCULAR HGB CONC 33.2 g/dL (31.0-37.0); MEAN CORPUSCULAR VOLUME 84.4 fL (80.0-98.0); MONOCYTES ABSOLUTE AUTO 0.6 K/uL (0.0-0.8); MONOCYTES PERCENT AUTO 7.6 % (0.0-15.0); NEUTROPHILS ABSOLUTE AUTO 3.9 K/uL (1.4-5.7); NEUTROPHILS PERCENT AUTO 47.2 % (48.0-80.0); NRBC ABSOLUTE 0 K/uL; PLATELET COUNT,PLT 293 K/uL (150-400); RED BLOOD CELL COUNT 4.93 M/uL (4.30-5.90); WHITE BLOOD CELL COUNT,WBC 8.19 K/uL (4.0-11.0)
[2023-02-17 06:56] LABS: A/G RATIO 0.9 (0.9-1.6); ALBUMIN 3.4 g/dL (3.4-5.0); BILIRUBIN TOTAL 0.3 mg/dL (0.2-1.0); CALCIUM 8.3 mg/dL (8.5-10.1); CREATININE 0.8 mg/dL (0.6-1.0); EST CRCL DRUG DOSING (CG) 95.38 mL/min; POTASSIUM,K 4.2 mmol/L (3.5-5.1)
[2023-02-17 12:30] VITALS: BP 139/90; PULSE 104
== END 2023-02-17 14:15 | disposition home or self-care (01) | DRG 383 ==
LOC: MW.ED 20:36 → MW.MS 21:41 → OBSVTOIN 02-16 09:32 → MW.MS 02-16 14:49
PROVIDERS: ADMIT Family Medicine; ATTEND Family Medicine
DX: L03.012 Cellulitis of left finger (principal); I10 Essential (primary) hypertension; F41.9 Anxiety disorder, unspecified; E66.9 Obesity, unspecified; Z79.899 Other long term (current) drug therapy; Z68.41 Body mass index [BMI] 40.0-44.9, adult; Z91.048 Other nonmedicinal substance allergy status; Z86.16 Personal history of COVID-19; Z90.89 Acquired absence of other organs
CPT/HCPCS: 36415; 80048; 80053; 80202; 85025; 85652; 86140; 96365; 96366; 96367; 96375; 99283; 99284-25; G0378; J0696; J3370; J3490; J7050

== ENCOUNTER 2023-10-05 19:52 | Emergency (ER) | payer BC ==
[2023-10-05 20:25] LABS: BASOPHILS ABSOLUTE AUTO 0.04 K/uL (0.00-0.20); BASOPHILS PERCENT AUTO 0.2 % (0.0-1.0); EOSINOPHILS ABSOLUTE AUTO 0.24 K/uL (0.00-0.45); EOSINOPHILS PERCENT AUTO 1.3 % (0.0-6.0); HEMATOCRIT 46.6 % (37.0-47.0); HEMOGLOBIN 15.7 g/dL (12.0-16.0); IMMATURE GRAN PERCENT AUTO 0.5 % (0.0-0.4); LYMPHOCYTES ABSOLUTE AUTO 2.44 K/uL (1.00-4.80); LYMPHOCYTES PERCENT AUTO 13.3 % (24.0-44.0); MEAN CORPUSCULAR HEMOGLOBIN 28.8 pg (28.0-32.0); MEAN CORPUSCULAR HGB CONC 33.7 g/dL (32.0-36.0); MEAN CORPUSCULAR VOLUME 85.5 fL (83.0-99.0); MONOCYTES PERCENT AUTO 4.9 % (0.0-8.0); NEUTROPHILS ABSOLUTE AUTO 14.68 K/uL (1.80-7.70); NEUTROPHILS PERCENT AUTO 79.8 % (41.0-71.0); PLATELET COUNT,PLT 279 K/uL (150-400); RED BLOOD CELL COUNT 5.45 M/uL (4.10-5.30)
[2023-10-05] MEDS: Morphine 4 MG/ML Syringe IVPUSH ONE (20:40)
[2023-10-05] MEDS: Alum Hydro/Mag Hydro/Simeth XS 15 ML, Lidocaine 2% 5 ML PO ONE (20:40)
[2023-10-05] MEDS: Sodium Chloride 0.9% 1,000 ML IV ONE (20:40)
[2023-10-05] MEDS: Ondansetron 4 MG/2 ML SDV IVPUSH ONE (20:40)
[2023-10-05 20:58] LABS: A/G RATIO 0.9 (0.9-1.6); ALANINE AMINOTRANSFERASE,ALT 26 IU/L (14-63); ALBUMIN 3.8 g/dL (3.4-5.0); ALKALINE PHOSPHATASE 52 U/L (46-116); ASPARTATE AMNIOTRANSFERASE,AST 18 IU/L (15-37); BILIRUBIN TOTAL 0.7 mg/dL (0.2-1.0); BLOOD UREA NITROGEN,BUN 18 mg/dL (7.0-18.0); CALCIUM 8.3 mg/dL (8.5-10.1); CARBON DIOXIDE,CO2 25.7 mmol/L (21.0-32.0); CHLORIDE,CL 103 mmol/L (98-107); GLUCOSE RANDOM 118 mg/dL (74-106); LIPASE 22 U/L (16-77); POTASSIUM,K 3.7 mmol/L (3.5-5.1); PROTEIN TOTAL,TP 7.8 g/dL (6.4-8.2); SODIUM,NA 138 mmol/L (136-145)
[2023-10-05 21:00] LABS: ESTIMATED GFR 77 mL/min (>60)
[2023-10-05 21:44] LABS: APPEARANCE,URINE CLEAR; BILIRUBIN,URINE NEGATIVE (NEGATIVE); GLUCOSE,URINE NEGATIVE (NEGATIVE); KETONES,URINE NEGATIVE (NEGATIVE); LEUKOCYTE ESTERASE,URINE NEGATIVE (NEGATIVE); NITRITE,URINE NEGATIVE (NEGATIVE); OCCULT BLOOD,URINE TRACE-INTACT (NEGATIVE); PROTEIN,URINE NEGATIVE (NEGATIVE); UROBILINOGEN,URINE 0.2 EU/dL (<2.0)
[2023-10-05 21:45] LABS: COLOR,URINE DARK YELLOW
[2023-10-05 21:46] LABS: BACTERIA,URINE FEW (NEGATIVE); EPITHELIAL CELLS,URINE FEW (NONE-FEW); RBC,URINE 0-1 (0-2/HPF); WBC,URINE 0-1 (0-5/HPF)
[2023-10-05 22:09] VITALS: BP 120/74; PULSE 74
== END 2023-10-05 22:08 | disposition home or self-care (01) ==
LOC: MW.ED 19:52
DX: R10.13 Epigastric pain (principal); I10 Essential (primary) hypertension; E66.9 Obesity, unspecified; Z86.16 Personal history of COVID-19; Z79.899 Other long term (current) drug therapy; Z91.048 Other nonmedicinal substance allergy status
CPT/HCPCS: 36415; 80053; 81001; 83690; 84703; 85025; 96361; 96374; 96375; 99284; A9270; J2270; J2405; J7030